=== PATIENT | male | born 1955 | race Caucasian/White ===

== ENCOUNTER 2017-12-14 17:03 | Emergency (ER) | payer MEDICARE, OTHER ==
[~2017-12-14] VITALS: Ht 177.8 cm; Wt 140.7 kg
[2017-12-14] MEDS ORDERED: PREG25CA PO (17:24)
[2017-12-14] MEDS ORDERED: GABA-827 PO (17:24)
[2017-12-14] MEDS ORDERED: ALBUTEROL/IPRATROPIUM 2.5MG/0.5MG, 3 ML NPPB SCH (17:30)
[2017-12-14] MEDS ORDERED: IBUP200C5 PO (17:36)
[2017-12-14] MEDS ORDERED: TRAZ100T15 PO (17:36)
[2017-12-14] MEDS ORDERED: TIZA2CAP PO (17:37)
[2017-12-14] MEDS ORDERED: ALBUTEROL/IPRATROPIUM 2.5MG/0.5MG, 3 ML ONE (17:38)
[2017-12-14] MEDS ORDERED: OXYC-307 PO (17:38)
[2017-12-14] MEDS ORDERED: ZOLP12.52 PO (17:38)
[2017-12-14] MEDS ORDERED: ROPI2TAB PO (17:39)
[2017-12-14] MEDS ORDERED: CLON2TAB16 PO (17:41)
[2017-12-14] MEDS ORDERED: INSU100V8 SQ (17:42)
[2017-12-14 17:44] LABS: BASOPHILS # (AUTO) 0.02 x10^3/uL (0-0.1); BASOPHILS % (AUTO) 0 % (0-1); EOSINOPHILS # (AUTO) 0.28 x10^3/uL (0-0.4); EOSINOPHILS % (AUTO) 4 % (1-7); LYMPHOCYTES # (AUTO) 1.04 x10^3/uL (1-3.4); LYMPHOCYTES % (AUTO) 14 % (22-44); MD NO; MEAN CORPUSCULAR HEMOGLOBIN 31.1 pg (27.5-34.5); MEAN CORPUSCULAR HGB CONC 33.6 g/dL (33.2-36.2); MEAN CORPUSCULAR VOLUME 92.5 fL (81-97); MONOCYTES % (AUTO) 9 % (2-9); NEUTROPHILS # (AUTO) 5.63 x10^3/uL (1.8-6.8); NEUTROPHILS % (AUTO) 74 % (42-75); PLATELET COUNT 140 x10^3/uL (130-400); RED BLOOD COUNT 4.96 x10^6/uL (4.38-5.82)
[2017-12-14] MEDS ORDERED: ALBU0.63 NEB (17:45)
[2017-12-14 17:50] LABS: ALBUMIN 3.3 g/dL (3.4-5.0); ANION GAP 7 mmol/L (5-15); CALCIUM 8.6 mg/dL (8.5-10.1); CHLORIDE 111 mmol/L (98-107); CREATININE 0.97 mg/dL (0.7-1.3)
[2017-12-14 17:55] LABS: TROPONIN I < 0.015 ng/mL (0.000-0.045)
[2017-12-14 18:23] LABS: MICROSCOPIC NOT IND
[2017-12-14 18:27] LABS: CULTURE INDICATED? NO
[2017-12-14 19:21] VITALS: BP 127/68
== END 2017-12-14 19:31 | disposition home or self-care (01) ==
LOC: ED 19:25
DX: J98.01 Acute bronchospasm (principal); B97.89 Other viral agents as the cause of diseases classified elsewhere; R79.89 Other specified abnormal findings of blood chemistry; E11.9 Type 2 diabetes mellitus without complications; G89.29 Other chronic pain; I48.91 Unspecified atrial fibrillation; M54.5 Low back pain
CPT/HCPCS: 36415; 71046; 80048; 81003; 82040; 83880; 84443; 84484; 85025; 93005; 94640; 99285; J7512; J7620

== ENCOUNTER 2018-11-19 21:04 | Emergency (ER) | payer MEDICARE, OTHER ==
[~2018-11-19] VITALS: Ht 177.8 cm; Wt 128.0 kg
[~2018-11-19 21:04] MED LIST: ALBU0.63 NEB; CLON2TAB16 PO; GABA-827 PO; IBUP-1623 PO; INSU100V8 SQ; OXYC-307 PO; PREG25CA PO; ROPI2TAB PO; TIZA2CAP PO; TRAZ-137 PO; ZOLP12.52 PO
[2018-11-19] MEDS ORDERED: SODIUM CHLORIDE FLUSH 10ML SYR IVF ONE (21:30)
[2018-11-19] MEDS ORDERED: MORPHINE SULFATE 4 MG/ML, 1ML IVPush PRN (21:30)
[2018-11-19] MEDS ORDERED: ONDANSETRON 2MG/ML, 2ML IVPush ONE (21:30)
[2018-11-19 21:46] LABS: BASOPHILS # (AUTO) 0.02 x10^3/uL (0-0.1); BASOPHILS % (AUTO) 0 % (0-1); EOSINOPHILS # (AUTO) 0.14 x10^3/uL (0-0.4); EOSINOPHILS % (AUTO) 1 % (1-7); LYMPHOCYTES # (AUTO) 1.34 x10^3/uL (1-3.4); LYMPHOCYTES % (AUTO) 13 % (22-44); MD NO; MEAN CORPUSCULAR HEMOGLOBIN 31.2 pg (27.5-34.5); MEAN CORPUSCULAR HGB CONC 33.9 g/dL (33.2-36.2); MEAN CORPUSCULAR VOLUME 92.1 fL (81-97); MEAN PLATELET VOLUME 10.8 fL (7.4-10.4); MONOCYTES # (AUTO) 0.65 x10^3/uL (0.2-0.8); MONOCYTES % (AUTO) 6 % (2-9); NEUTROPHILS # (AUTO) 8.58 x10^3/uL (1.8-6.8); NEUTROPHILS % (AUTO) 80 % (42-75); PLATELET COUNT 118 x10^3/uL (130-400); RED CELL DISTRIBUTION WIDTH 14.7 % (9.4-14.8)
[2018-11-19 21:56] LABS: ALANINE AMINOTRANSFERASE 44 U/L (12-78); ALBUMIN 3.4 g/dL (3.4-5.0); ANION GAP 5 mmol/L (5-15); CHLORIDE 112 mmol/L (98-107)
[2018-11-19] MEDS ORDERED: MORPHINE SULFATE 4 MG/ML, 1ML ONE (21:57)
[2018-11-19] MEDS ORDERED: ONDANSETRON 2MG/ML, 2ML ONE (21:57)
[2018-11-19] MEDS ORDERED: KETOROLAC 30 MG/1 ML ONE (21:57)
[2018-11-19 22:00] LABS: ALKALINE PHOSPHATASE 119 U/L (45-117); BILIRUBIN,TOTAL 0.4 mg/dL (0.2-1.0); TROPONIN I < 0.015 ng/mL (0.000-0.045)
[2018-11-19] MEDS ORDERED: KETOROLAC 30 MG/1 ML IVPush ONE (22:00)
--- NOTE | 2018-11-19 22:00 | NUR ---
PT HERE FOR LEFT FLANK PAIN THAT RADIATED AROUND FRONT. VSS. PT MEDICATED BY [facility]. PAIN COMING BACK AND PT REMEDICATED. PT TO CT
--- NOTE | 2018-11-19 22:40 | NUR ---
UA SENT TO LAB
[2018-11-19 22:47] LABS: MICROSCOPIC AUTO
[2018-11-19 22:48] LABS: CULTURE INDICATED? NO
[2018-11-19 23:00] VITALS: BP 137/78
--- NOTE | 2018-11-19 23:31 | NUR ---
Patient given discharge instructions and they have confirmed that they understand the instructions. Patient ambulatory with steady gait.
== END 2018-11-19 23:33 | disposition home or self-care (01) ==
LOC: ED 21:51
DX: N20.2 Calculus of kidney with calculus of ureter (principal); E11.9 Type 2 diabetes mellitus without complications
CPT/HCPCS: 36415; 71045; 74176; 80053; 81001; 83690; 84484; 85025; 93005; 96374; 96375; 99284; J1885; J2405

== ENCOUNTER 2018-12-20 09:01 | Inpatient (IN) | payer MEDICARE, OTHER ==
[~2018-12-20] VITALS: Ht 177.8 cm; Wt 134.7 kg
[2018-12-20] MEDS ORDERED: OMNIPAQUE 350 MG/ML, 100ML BOTTLE ONE (09:31)
[2018-12-20 09:55] LABS: BASOPHILS # (AUTO) 0.03 x10^3/uL (0-0.1); BASOPHILS % (AUTO) 0 % (0-1); EOSINOPHILS # (AUTO) 0.19 x10^3/uL (0-0.4); EOSINOPHILS % (AUTO) 2 % (1-7); LYMPHOCYTES # (AUTO) 1.48 x10^3/uL (1-3.4); LYMPHOCYTES % (AUTO) 13 % (22-44); MD NO; MEAN CORPUSCULAR HEMOGLOBIN 30.7 pg (27.5-34.5); MEAN CORPUSCULAR VOLUME 93.1 fL (81-97); MEAN PLATELET VOLUME 9.9 fL (7.4-10.4); MONOCYTES % (AUTO) 6 % (2-9); NEUTROPHILS # (AUTO) 8.67 x10^3/uL (1.8-6.8); NEUTROPHILS % (AUTO) 78 % (42-75); PLATELET COUNT 118 x10^3/uL (130-400); RED BLOOD COUNT 4.81 x10^6/uL (4.38-5.82); RED CELL DISTRIBUTION WIDTH 14.6 % (9.4-14.8)
[2018-12-20 10:03] LABS: INTERNATIONAL NORMALIZED RATIO 1.1 (0.93-1.1); PROTHROMBIN TIME 11.5 Seconds (9.6-11.5)
[2018-12-20 10:05] LABS: ALBUMIN 3.3 g/dL (3.4-5.0); ANION GAP 4 mmol/L (5-15); CALCIUM 8.1 mg/dL (8.5-10.1); CHLORIDE 115 mmol/L (98-107)
[2018-12-20 10:10] LABS: ALANINE AMINOTRANSFERASE 30 U/L (12-78); CREATININE 0.92 mg/dL (0.7-1.3); TOTAL PROTEIN 5.3 g/dL (6.4-8.2); TROPONIN I < 0.015 ng/mL (0.000-0.045)
[2018-12-20] MEDS ORDERED: ASPIRIN 81 MG TABLET CHEW ONE (10:11)
[2018-12-20 10:12] LABS: ALKALINE PHOSPHATASE 98 U/L (45-117)
[2018-12-20] MEDS ORDERED: ASPIRIN 325 MG TABLET PO ONE (10:30)
[2018-12-20] MEDS ORDERED: ASPIRIN 81 MG TABLET CHEW PO ONE (10:30)
--- NOTE | 2018-12-20 10:34 | NUR ---
PT TO ROOM 36, SBAR RPT REC'D FROM BETITO VACA AND ASSUMED PT CARE.
--- NOTE | 2018-12-20 10:50 | NUR ---
dr carrillo at bedside, assessment in progress
[2018-12-20 10:52] LABS: MICROSCOPIC INDICATED
[2018-12-20 11:17] LABS: CULTURE INDICATED? NO
[2018-12-20] MEDS ORDERED: ACETAMINOPHEN 325 MG TABLET PO PRN (13:00)
[2018-12-20] MEDS ORDERED: HEPARIN 5,000 UNITS/ML, 1ML SQ SCH (13:00)
[2018-12-20] MEDS ORDERED: LABETALOL 20 MG/4 ML IV PRN (13:00)
[2018-12-20] MEDS ORDERED: HEPARIN 5,000 UNITS/ML, 1ML ONE (13:07)
--- NOTE | 2018-12-20 13:12 | NUR ---
PT MOVED ONTO HOSPITAL BED FOR COMFORT. TOLLERATED ACTIVITY WELL WITH 4 PERSON SLIDE TRANSFER. CALL LIGHT W/I REACH NAD NOTED
[2018-12-20] MEDS: SODIUM CHLORIDE 0.9% 1,000 ML IV SCH (13:14)
[2018-12-20] MEDS ORDERED: OXYcodone/APAP 10/325MG TABLET PO SCH (13:30)
[2018-12-20] MEDS ORDERED: ALBUTEROL SULFATE 2.5 MG/3 ML NEB PRN (13:30)
[2018-12-20 13:49] LABS: HEMOGLOBIN A1C 7.5 % (4.2-6.3)
--- NOTE | 2018-12-20 14:05 | NUR ---
REPORT FROM BETITO BERRY. PT SITTING UP IN [place], NAD NOTED. FRIEND AT BEDSIDE. ECG/BP/SPO2 MONITOR IN PLACE, NSR ON MONITOR. PT UPDATED TO POC (ADMIT, ED HOLD) AND DEMONSTRATES UNDERSTANDING. PT W/ MODERATE STRENGTH OF RUE/RLE, ABLE TO SHRUG SHOULDER AND MOVE FINGERS/TOES. FAMILY AT BEDSIDE.
[2018-12-20 14:21] LABS: HCT (SEDRATE) 44.8 % (39.2-51.8)
--- NOTE | 2018-12-20 15:00 | NUR ---
AWAITING PT'S HOME DEVICE TO TURN OFF SPINAL STIMULATOR. ONCE RECEIVED, PT WILL GO TO MRI
[2018-12-20] MEDS: INSULIN LISPRO 100 UNITS/ML, PEN SQ-INSULIN SCH ×3 (16:00→22:35)
--- NOTE | 2018-12-20 16:07 | NUR ---
FSBS 168. PT TO MRI AT THIS TIME. MEAL TRAY AND INSULIN, IF NEEDED, TO BE ADMIN UPON RETURN
[2018-12-20] MEDS ORDERED: GABAPENTIN 400 MG CAPSULE ONE (16:37)
--- NOTE | 2018-12-20 17:01 | NUR ---
PT TRANSFERED SELF WITH STANDBY X TWO ASSISTANCE TO BEDSIDE COMMODE W/ SUCCESSUL URINE OUTPUT. URINE DARK, CLEAR. PT DENIES INCREASE IN WEAKNESS/CP/SOB WITH ACTIVITY
[2018-12-20] MEDS: GABAPENTIN 400 MG CAPSULE PO SCH ×2 (17:11→22:34)
--- NOTE | 2018-12-20 17:17 | NUR ---
TASK RN: Provided medication per EMAR. SARAHN. No needs expressed. All safety measures in place. Call light within reach. Family at bedside.
--- NOTE | 2018-12-20 18:46 | NUR ---
PT SITTING UP IN [facility] ANAYA NOTED. AT BS. IMPROVMENT IN LLE STRENGTH. PT ABLE TO HOLD EXTREMITY UP W/ DRIFT; LUE W/ GROSS MOTOR CONTROL OF HAND AND SHOULDER. LITTLE IMPROVEMENT IN FINE MOTOR CONTROL. SPEECH CLEAR, FACE SYMMETRICAL.
--- NOTE | 2018-12-20 19:13 | NUR ---
BREAK RN; PT RESTING IN HOSPITAL BED ON ALL MONITORS WITH FAMILY AT BEDSIDE, PT REPORTS INCREASING MOVEMENT AND STRENGHT IN EXTREMITIES, WITH LEAST MOVEMENT TO LEFT ARM, TALKATIVE IN NAD.
[2018-12-20] MEDS ORDERED: TRAZODONE 100MG TABLET PO SCH (21:00)
[2018-12-20] MEDS ORDERED: ATORVASTATIN 80 MG TABLET PO SCH (21:00)
[2018-12-20 22:30] VITALS: BP 108/69
[2018-12-21 04:55] VITALS: BP 97/63
[2018-12-21] MEDS: SODIUM CHLORIDE 0.9% 1,000 ML IV SCH (05:15)
[2018-12-21] MEDS: INSULIN LISPRO 100 UNITS/ML, PEN SQ-INSULIN SCH ×3 (07:00→17:54)
[2018-12-21 07:30] LABS: CHOL/HDL RATIO 2.7; LDL/HDL RATIO 1.1 (0.5-3.0)
[2018-12-21 07:37] LABS: ALANINE AMINOTRANSFERASE 27 U/L (12-78); ALBUMIN 3.3 g/dL (3.4-5.0); ANION GAP 7 mmol/L (5-15); CALCIUM 8.8 mg/dL (8.5-10.1); CHLORIDE 116 mmol/L (98-107); CREATININE 0.83 mg/dL (0.7-1.3)
[2018-12-21 07:39] LABS: ALKALINE PHOSPHATASE 103 U/L (45-117); BILIRUBIN,TOTAL 0.4 mg/dL (0.2-1.0); TOTAL PROTEIN 5.9 g/dL (6.4-8.2)
[2018-12-21 08:00] VITALS: BP 99/64
[2018-12-21 08:04] LABS: BASOPHILS # (AUTO) 0.03 x10^3/uL (0-0.1); BASOPHILS % (AUTO) 0 % (0-1); EOSINOPHILS # (AUTO) 0.36 x10^3/uL (0-0.4); EOSINOPHILS % (AUTO) 5 % (1-7); LYMPHOCYTES # (AUTO) 2.31 x10^3/uL (1-3.4); LYMPHOCYTES % (AUTO) 32 % (22-44); MD NO; MEAN CORPUSCULAR HEMOGLOBIN 30.7 pg (27.5-34.5); MEAN CORPUSCULAR HGB CONC 32.7 g/dL (33.2-36.2); MEAN CORPUSCULAR VOLUME 93.7 fL (81-97); MEAN PLATELET VOLUME 10.4 fL (7.4-10.4); MONOCYTES # (AUTO) 0.45 x10^3/uL (0.2-0.8); MONOCYTES % (AUTO) 6 % (2-9); NEUTROPHILS # (AUTO) 3.99 x10^3/uL (1.8-6.8); NEUTROPHILS % (AUTO) 56 % (42-75); PLATELET COUNT 125 x10^3/uL (130-400); RED BLOOD COUNT 5.05 x10^6/uL (4.38-5.82); RED CELL DISTRIBUTION WIDTH 14.7 % (9.4-14.8)
[2018-12-21] MEDS ORDERED: PREGABALIN 25 MG CAPSULE PO SCH (09:00)
[2018-12-21] MEDS ORDERED: CLOPIDOGREL 75 MG TABLET PO SCH (09:00)
--- NOTE | 2018-12-21 10:23 | NUR ---
REC: Regular diet with thin liquids; assist with opening containers and cutting meat Addendum: 12/21/18 at 1024 by Kelly SAN Amended: Links added.
[2018-12-21] MEDS: GABAPENTIN 400 MG CAPSULE PO SCH ×2 (11:13→17:54)
[2018-12-21] MEDS ORDERED: ASPIRIN 81 MG TABLET CHEW PO SCH (11:30)
[2018-12-21] MEDS ORDERED: OXYC20TA2 PO (11:59)
[2018-12-21] MEDS ORDERED: OXYcodone ORAL.CONC 20 MG/ML PO PRN (12:00)
[2018-12-21] MEDS ORDERED: OXYcodone IR 5MG TABLET PO PRN (12:00)
[2018-12-21 13:29] VITALS: BP 137/71
[2018-12-21] MEDS ORDERED: ASPIRIN 81 MG TABLET CHEW PO ONE (13:30)
[2018-12-21] MEDS ORDERED: ASPI-515 PO (18:34)
== END 2018-12-21 20:27 | disposition home or self-care (01) | DRG 69 ==
LOC: EDBD → UNMERGE 09:01 → EDBD 09:01 → MERGE 09:01 → ED 10:08 → EDIP 10:09 → ED 10:30 → 4EST 22:09
PROVIDERS: ADMIT Hospitalist; ATTEND Hospitalist
DX: G45.9 Transient cerebral ischemic attack, unspecified (principal); J96.01 Acute respiratory failure with hypoxia; E87.0 Hyperosmolality and hypernatremia; Z68.41 Body mass index [BMI] 40.0-44.9, adult; R53.1 Weakness; E66.01 Morbid (severe) obesity due to excess calories; D72.829 Elevated white blood cell count, unspecified; E11.65 Type 2 diabetes mellitus with hyperglycemia; G47.33 Obstructive sleep apnea (adult) (pediatric); J32.9 Chronic sinusitis, unspecified; J45.909 Unspecified asthma, uncomplicated; K59.09 Other constipation; Z96.642 Presence of left artificial hip joint; Z96.651 Presence of right artificial knee joint; Z79.891 Long term (current) use of opiate analgesic; Z87.442 Personal history of urinary calculi
CPT/HCPCS: 36415; 70450; 70496; 70498; 70551; 71045; 72141; 80047; 80053; 80061; 81001; 82962; 83036; 83605; 84145; 84484; 85025; 85520; 85610; 85651; 85730; 86140; 87040; 93005; 93306; 99285; G0378; Q9967; J1815; J7030